=== PATIENT | female | born 1940 | race Caucasian/White ===

== ENCOUNTER 2020-05-13 15:26 | Inpatient (IN) | payer MEDICARE, SELFPAY ==
[2020-05-13] VITALS (13 sets, daily range): BP systolic 116–138; BP diastolic 71–92; PULSE 62–138; RESP 18–29; TEMP 36.3–36.7; O2SAT 91–100; BMI 33.7; BMI 40.4
--- NOTE | ~2020-05-13 | XR_ITS ---
EXAMINATION: XR chest 1V portable DATE: 05/13/2020 16:35 INDICATION: Weakness. TECHNIQUE: A single frontal view of the chest was obtained. COMPARISON: Chest 2 views 08/28/2017, PET CT 10/15/2017 FINDINGS: The chest demonstrates clear lungs without pneumonia, pleural effusion, or pneumothorax. Th e heart size is normal. There is a left chest wall pacer with leads in the right atrium and right sylvie tricle. There is a right internal jugular port with tip in superior vena cava. IMPRESSION: 1. No acute cardiopulmonary disease. Reviewed, dictated and finalized at location A. [place] MEDIA DIRECTOR
--- NOTE | 2020-05-13 15:39 | ECG_ITS ---
Measurements Intervals [place] Rate: 135 P: [place]: 0 QRS: -26 QRSD: 88 T: -14 QT: 298 QTc: 448 Interpretive Statements SUPRAVENTRICULAR TACHYCARDIA DELAYED PRECORDIAL R/S TRANSITION BORDERLINE T WAVE ABNORMALITY- INFERIOR LEADS BASELINE ARTIFACT- I, II, III, AVR, AVL, AVF ABNORMAL ECG Electronically Signed On 05-13-2020 16:15:51 [employer] CELE[employer]ANT by Sina Ulloa D.O.
--- NOTE | 2020-05-13 16:08 | ED.WEAKNESS ---
HPI - Weakness General Chief complaint: Weakness Stated complaint: low blood pressure Time Seen by Provider: 05/13/20 15:28 Source: patient and family Mode of arrival: EMS Limitations: no limitations History of Present Illness HPI Narrative: This patient is a 79 year old female who presents for evaluation of weakness. She reports 2 days ago she develops chills, sweats and malodorous urine. She was trying to go to her doctor today but she noticed that she was lightheaded and weak. She reports her BP at home was 91/50 and her heart rate was 145. She reports history of sick sinus and tachycardia, so she has a pacemaker. She denies chest pain, sob, cough, nausea, vomiting, abdominal pain or back pain. She reports frequent urinary and incontinence today as well. Related Data Home Medications Medication Instructions Recorded Confirmed amlodipine 5 mg PO DAILY 05/13/20 05/13/20 apixaban [Eliquis] 5 mg PO BID 05/13/20 05/13/20 carvedilol 25 mg PO BID 05/13/20 05/13/20 chlorthalidone 25 mg PO DAILY 05/13/20 05/13/20 cholecalciferol (vitamin D3) 50 mcg PO DAILY 05/13/20 05/13/20 fluticasone propionate 2 spray INTRANASAL DAILY PRN 05/13/20 05/13/20 ketorolac 1 drp RIGHTEYE TID 05/13/20 05/13/20 latanoprost 1 drp OPHTHALMIC (EYE) HS 05/13/20 05/13/20 levothyroxine 125 mcg PO DAILY 05/13/20 05/13/20 lovastatin 20 mg PO DAILY 05/13/20 05/13/20 metformin 1,000 mg PO BID 05/13/20 05/13/20 ofloxacin 1 drp RIGHTEYE TID 05/13/20 05/13/20 olmesartan 20 mg PO BID 05/13/20 05/13/20 prednisolone acetate 1 drp RIGHTEYE TID 05/13/20 05/13/20 turmeric 400 mg PO DAILY 05/13/20 05/13/20 vit C-vit W-lqpwxz-lplt-lutein 1 cap PO DAILY 05/13/20 05/13/20 [PreserVision Lutein] Allergies Allergy/AdvReac Type Severity Reaction Status Date / Time exenatide Allergy Intermediate KNEE Verified 05/13/20 21:30 SWELLING enalaprilat Allergy Mild UNSURE Verified 05/13/20 21:30 lisinopril Allergy Mild UNSURE Verified 05/13/20 21:30 streptomycin Allergy Mild ITCHING, Verified 05/13/20 21:30 NUMBNESS IN ARM hydrocodone AdvReac Intermediate NAUSEA Verified 05/13/20 21:30 MEPIVACAINE HCL Allergy Severe RESP Uncoded 05/13/20 21:30 DISTRESS Review of Systems Review of Systems: All systems reviewed & are unremarkable except as noted in HPI and below Constitutional: Constitutional: Reports chills and Reports fatigue Eyes: Eyes: Denies change in vision ENT: Reports dizziness and Denies sore throat Cardiovascular: Cardiovascular: Denies chest pain, Reports rapid heart rate and Denies radiating jaw, neck or arm pain Respiratory: Respiratory: Denies cough, Denies dyspnea and Denies wheezing Gastrointestinal: Gastrointestinal: Denies abdominal pain, Denies nausea and Denies vomiting Genitourinary: Genitourinary: Reports nocturia and Reports urinary incontinence Musculoskeletal: Musculoskeletal: Denies back pain [facility] Past Medical History Medical History (Updated 05/13/20 @ 23:37 by Kristy Berry MD) Cataract CHF (congestive heart failure), NYHA class I Diastolic dysfunction and 1 DM2 (diabetes mellitus, type 2) Frequent UTI Glaucoma Hypothyroidism Obstructive sleep apnea Pacemaker Port-A-Cath in place Sick sinus syndrome Stomach cancer Treated with radiation and chemotherapy Surgical History Surgical History (Updated 05/13/20 @ 23:15 by Sarah Benton NP) Cataract extraction status History of bilateral knee replacement History of carpal tunnel release Right hand Family History Family History (Updated 05/13/20 @ 23:05 by Sarah Benton NP) Father Cerebrovascular accident Mother Cancer Grandparent Carcinoma of colon Social History Social History (Updated 05/13/20 @ 23:10 by Sarah Benton NP) Social History: 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 She quit smoking 17 or 18 years ago. For a brief period time maybe 8 years. No alcohol or illicit drugs. Her daughter She
[2020-05-13 16:27] LABS: Basophils Absolute Auto 0.1 K/mm3 (0.0-0.1); Basophils Percent Auto 0.3 % (0.2-1.2); Eosinophils Percent Auto 0.1 % (0-4.4); Hematocrit 30.9 % (37.0-47.0); Hemoglobin 9.9 g/dL (12.0-15.0); Immature Granulocyte Absolute 0.11 K/mm3 (0.00-0.031); Immature Granulocyte Percent A 0.7 % (0-0.5); Lymphocytes Absolute Auto 1.51 K/mm3 (0.9-3.2); Lymphocytes Percent Auto 9.5 % (18.3-44.2); Mean Corpuscular Hemoglobin 29.1 pg (26-34); Mean Corpuscular Volume 90.9 fl (80-100); Monocytes Absolute Auto 1.4 K/mm3 (0.1-0.6); Monocytes Percent Auto 8.9 % (2.6-8.5); Neutrophils Absolute Auto 12.7 K/mm3 (1.3-6.7); Neutrophils Percent Auto 80.5 % (45.5-73.1); Platelet Count Result 245 k/mm3 (150-375); Red Cell Distribution Width 15.3 % (11.5-14.5); White Blood Count 15.8 K/mm3 (4.5-10.0)
[2020-05-13 16:37] LABS: INR 1.7; Prothrombin Time 20.8 Seconds (11.1-14.7)
[2020-05-13 16:38] LABS: Partial Thromboplastin Time 41.9 SECONDS (22.3-36.8)
[2020-05-13 16:39] LABS: Lactic Acid Reflex 1.6 mmol/L (0.7-2.1)
[2020-05-13 16:49] LABS: Alanine Aminotransferase 26 U/L (4-35); Albumin Level 3.6 g/dL (3.5-5.1); Alkaline Phosphatase 81 U/L (38-126); Anion Gap 7 mmol/L (8-16); Aspartate Amino Transferase 34 U/L (14-36); Bilirubin,Total 0.6 mg/dL (0.2-1.3); Blood Urea Nitrogen 25 mg/dL (7-17); Calcium 8.2 mg/dL (8.4-10.2); Carbon Dioxide 26 mmol/L (22-30); Chloride 95 mmol/L (98-107); Estimated Glomerular Filt Rate 36; Glucose 203 mg/dL (65-105); Potassium 4.5 mmol/L (3.4-5.0); Sodium 128 mmol/L (137-145)
[2020-05-13 16:52] LABS: Troponin I 0.028 ng/mL (0.000-0.034)
[2020-05-13] MEDS: dilTIAZem HCl INJ 25 MG/5 ML VIAL 10 MG IV PUSH (17:06)
[2020-05-13 17:10] LABS: Add Urine Microscopic? YES; Appearance Urine Cloudy (Clear); Bacteria Urine 2+ /hpf; Bilirubin Urine Negative (Negative); Blood Urine 2+ (Negative); Color Urine Amber (Yellow); Glucose Urine UA Negative (Negative); Hyaline Casts Urine 30-49 /lpf; Ketones Urine Negative (Negative); Leukocyte Esterase Ur 2+ LEU/UL (Negative); Mucus Urine Moderate /lpf; Nitrate Urine Negative (Negative); Protein Urine 2+ mg/dL (Negative); RBC Urine 21-50 /hpf (0-2); Specific Grav Ur 1.019 (1.001-1.035); Squamous Epithelial Cell Urine Few /hpf (Few); WBC Clumps Urine Present /HPF; WBC Urine >75 /hpf
[2020-05-13] MEDS: METOPROLOL TARTRATE INJ 5 MG/5 ML VIAL IV PUSH (18:12)
--- NOTE | 2020-05-13 18:47 | PC.NURSE ---
Per Dr. Berry do not administer medication until she speaks with cardiology
[2020-05-13] MEDS: AMIODARONE 360 MG/D5W 200 ML 360 MG/200 ML BAG 33.33 MG IV CONT (19:25)
[2020-05-13] MEDS: SODIUM CHLORIDE 0.9% IV 2,700 ML/1,000 ML BAG 999 ML IV CONT ×3 (19:25→22:09)
--- NOTE | 2020-05-13 20:20 | PM.CNCAR ---
Assessment and Plan Assessment and plan (1) UTI (urinary tract infection): Code(s): N39.0 - Urinary tract infection, site not specified Status: Acute Assessment and Plan: On antibiotics. Will followed by hospitalist. (2) PSVT (paroxysmal supraventricular tachycardia): Code(s): I47.1 - Supraventricular tachycardia Status: Acute Assessment and Plan: Probably triggered by UTI. Continue Amiodarone drip loading for 24 hours. Give Metoprolol Tartate 25 mg PO every 6 hours with parameters for rate control. (3) Hypertension: Code(s): I10 - Essential (primary) hypertension Status: Acute Assessment and Plan: Stable. (4) Diastolic dysfunction: Code(s): I51.89 - Other ill-defined heart diseases Status: Acute (5) Dyslipidemia: Code(s): E78.5 - Hyperlipidemia, unspecified Status: Acute History of Present Illness History of Present Illness Consult date/time: 05/13/20 20:20 Reason for consult: PSVT. Saw patient in ER room with her daughter at bedside. 79 yr old woman who is my regular cardiology patient who I saw last in my office on 08/30/17 who presents to ER due to weakness. She has a history of PSVT from 2016, DM, hypertension, dyslipidemia, Medtronic pacemaker placed in September 2019 at [facility] and being followed by pca there, had stomach/esophageal tumor treated with radiation and chemotherapy at [facility]. Reports that for last days she noticed chills, urinary urgency, and weakness. She came to ER and it was noted on telemetry and EKG that she was going in and out of SVT. She also has UTI. She received antibiotics and placed on Amiodarone drip. Denies chest pain, sob, orthopnea, PND, edema. Cardiovascular studies: 09/12/17 Echo: EF 60-65%, mild LVH, grade I diastolic dysfunction (E/e' 27), mild LAE, mild MR. 09/12/17 Lexiscan myoview: Negative for ischemia. Reason For Visit: sepsis UTI, paroxsymal svt, acute renal failure Review of Systems Constitutional: Constitutional: Reports as per HPI, Reports chills, Reports fatigue and Denies fever(s) Cardiovascular: Cardiovascular: Reports as per HPI, Denies chest pain, Denies leg edema, Denies lightheadedness and Denies dyspnea Respiratory: Respiratory: Reports as per HPI and Denies dyspnea Gastrointestinal: Gastrointestinal: Reports as per HPI and Denies abdominal pain Genitourinary: Genitourinary: Reports as per HPI and Reports urinary urgency Musculoskeletal: Musculoskeletal: Reports as per HPI Neurologic: Reports as per HPI, Denies dizziness and Denies syncope [facility] Past Medical History Medical History (Updated 05/13/20 @ 20:27 by Sina Ulloa DO) Cataract Frequent UTI Pacemaker Port-A-Cath in place Sick sinus syndrome Family History Family History (Updated 12/24/13 @ 07:13 by DOCTOR UNKNOWN) Father Cerebrovascular accident Mother Carcinoma of colon Social History Social History Smoking status: Former smoker Meds Home Medications and Allergies Home Medications Medication Instructions Recorded Confirmed Type amlodipine 05/13/20 History carvedilol 05/13/20 History cholecalciferol (vitamin D3) 05/13/20 History fluticasone propionate 2 spray INTRANASAL DAILY 05/13/20 05/13/20 History latanoprost drp 05/13/20 History levothyroxine 137 mcg PO DAILY 05/13/20 05/13/20 History lovastatin 20 mg PO DAILY 05/13/20 05/13/20 History metformin mg 05/13/20 History olmesartan 20 mg PO DAILY 05/13/20 05/13/20 History turmeric mg PO 05/13/20 05/13/20 History Allergies Allergy/AdvReac Type Severity Reaction Status Date / Time exenatide Allergy Intermediate KNEE Verified 05/13/20 15:26 SWELLING enalaprilat Allergy Mild UNSURE Verified 05/13/20 15:26 lisinopril Allergy Mild UNSURE Verified 05/13/20 15:26 streptomycin Allergy Mild ITCHING, Verified 05/13/20 15:26 NUMBNESS IN ARM hydrocodone AdvReac Intermediate NAUSEA Verified 05/13/20 15:26 MEPIVACAINE H
--- NOTE | 2020-05-13 20:35 | ADMGEN ---
This patient, Faye Marquez, was admitted to IMU Room 203-01. Patient/family oriented to hospital policies and general routines including ID bracelet, bed and alarms, visiting hours, pain management, procedures, bathroom and other care routines, personal items, smoking policy, room service/diet, and visiting hours. Information on how to activate the Rapid Response Team has been discussed. Patient/Family are encouraged to report perceived risks to care and to ask questions if they do not understand what they are told or what they should do.
[2020-05-13 21:18] LABS: Magnesium 1.5 mg/dL (1.6-2.3)
--- NOTE | 2020-05-13 22:53 | PM.IMHP ---
H&P: HPI History of Present Illness Date/Time: 05/13/20 22:53 Chief Complaint: Low blood pressure and fast heart rate sepsis Narrative: Faye Marquez is a 79 year old femaleHer doctor's office today due to generalized weakness. For the past 2 days she has had some chills diaphoretic and some foul-smelling urine. The patient stated she was lightheaded and weak. Her blood pressure at home was 91/50 and her heart rate was 145. She does have a history of sick sinus syndrome and has a pacemaker. She has urinary frequency and incontinence today as well. Patient has a past history of having SVT. The patient stated that her blood sugars are even a little bit higher today they are in the 200s. The patient was brought here by ambulance from her doctor's office due to her low blood pressure and it was reported that the patient has sepsis. Heart rate was 138 and a did come down is 72 and then 62 but then went right back up to the 120s. Side but a IV boluses were given and she recovered well. Dr. stevens her thoroughbred horse farm manager came to see her and suggested amiodarone drip and Lopressor p.o. the patient had been on Coreg at home. The patient was started on ceftriaxone for her urinary tract infection. The patient had a sodium of 128. Glucose 203. Magnesium 1.5. C reactive protein 19. Patient was given IV Tylenol in the emergency room. The patient is being admitted to inpatient services on the date of service of 05/13/2020. Review of Systems Review of Systems: All systems reviewed & are unremarkable except as noted in HPI and below Constitutional: Constitutional: Reports as per HPI and Reports no additional constitutional complaints Eyes: Eyes: Reports as per HPI and Reports no additional eye complaints ENT: Reports system reviewed and no additional complaints, except as documented and Reports Normal hearing present Cardiovascular: Cardiovascular: Reports no additional cardiovascular complaints Respiratory: Respiratory: Reports no additional respiratory complaints and Reports no additional respiratory complaints Gastrointestinal: Gastrointestinal: Reports as per HPI and Reports no additional gastrointestinal complaints Musculoskeletal: Musculoskeletal: Reports no additional musculoskeletal complaints Integumentary/Breasts: Skin/Breast: Reports system reviewed and no additional complaints, except as docu and Reports as per HPI Neurologic: Reports system reviewed and no additional complaints, except as documented, Reports as per HPI and Reports Normal hearing present Psychiatric: Psychiatric: Reports no additional psychiatric complaints and Reports as per HPI Endocrine: Endocrine: Reports no additional endocrine complaints Hematologic/Lymphatic: Hematologic/Lymphatic: Reports no additional hematologic/lymphatic complaints Allergic/Immunologic: Allergic/Immunologic: Reports no additional allergic/immunologic complaints [facility] Past Medical History Medical History (Updated 05/13/20 @ 23:15 by Sarah Benton NP) Cataract CHF (congestive heart failure), NYHA class I Diastolic dysfunction and 1 DM2 (diabetes mellitus, type 2) Frequent UTI Glaucoma Hypothyroidism Obstructive sleep apnea Pacemaker Port-A-Cath in place Sick sinus syndrome Stomach cancer Treated with radiation and chemotherapy Surgical History Surgical History (Updated 05/13/20 @ 23:15 by Sarah Benton NP) Cataract extraction status History of bilateral knee replacement History of carpal tunnel release Right hand Family History Family History (Updated 05/13/20 @ 23:05 by Sarah Benton NP) Father Cerebrovascular accident Mother Cancer Grandparent Carcinoma of colon Social History Social History (Updated 05/13/20 @ 23:10 by Sarah Benton NP) Social History: 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 She quit smoking 17 or 18 years ago. For a brief period time maybe 8 years. No alcohol or illicit drugs. Her daughter Teri is a durable
[2020-05-13] MEDS: SODIUM CHLORIDE 0.9% IV 1,000 ML 125 ML IV CONT (23:19)
[2020-05-13] MEDS: METOPROLOL TARTRATE 25 MG TABLET PO (23:58)
[2020-05-13] MEDS: APIXABAN 5 MG TABLET PO (23:58)
[2020-05-13] MEDS: MAGNESIUM SULF 2 GM/WATER 50ML 2 GM/50 ML BAG IVPB (23:59)
[2020-05-14] VITALS (29 sets, daily range): BP systolic 114–147; BP diastolic 67–93; PULSE 69–142; RESP 18–22; TEMP 36.2–37.1; O2SAT 89–98
[2020-05-14] MEDS: AMIODARONE 360 MG/D5W 200 ML 360 MG/200 ML BAG 16.67 MG IV CONT ×2 (00:53→11:41)
--- NOTE | 2020-05-14 02:06 | ECG_ITS ---
Measurements Intervals [place] Rate: 78 P: 87 MD: 302 QRS: -33 QRSD: 89 T: 0 QT: 359 QTc: 409 Interpretive Statements SINUS RHYTHM WITH FIRST DEGREE AV BLOCK LEFT AXIS DEVIATION NONSPECIFIC ST & T-WAVE ABNORMALITY- INF/HIGH LAT LEADS ABNORMAL ECG Electronically Signed On 05-14-2020 8:05:38 TIRE FIXER by Sina Ulloa D.O.
[2020-05-14 05:11] LABS: Sodium Urine Random 96 meq/L
[2020-05-14] MEDS: LEVOTHYROXINE SODIUM 125 MCG TABLET PO (06:26)
[2020-05-14] MEDS: METOPROLOL TARTRATE 25 MG TABLET PO ×2 (06:26→11:41)
[2020-05-14 07:31] LABS: Glucose Point of Care 149 (65-105)
[2020-05-14 08:07] LABS: Basophils Percent Auto 0.2 % (0.2-1.2); Eosinophils Percent Auto 0.2 % (0-4.4); Hematocrit 31.1 % (37.0-47.0); Hemoglobin 10.2 g/dL (12.0-15.0); Immature Granulocyte Absolute 0.06 K/mm3 (0.00-0.031); Immature Granulocyte Percent A 0.5 % (0-0.5); Lymphocytes Absolute Auto 1.19 K/mm3 (0.9-3.2); Lymphocytes Percent Auto 9.5 % (18.3-44.2); Mean Corpuscular HGB Conc 32.8 g/dl (32-36); Mean Corpuscular Hemoglobin 28.7 pg (26-34); Mean Corpuscular Volume 87.4 fl (80-100); Mean Platelet Volume 9.4 fl (7.4-10.4); Monocytes Percent Auto 7.8 % (2.6-8.5); Neutrophils Absolute Auto 10.2 K/mm3 (1.3-6.7); Neutrophils Percent Auto 81.8 % (45.5-73.1); Platelet Count Result 278 k/mm3 (150-375); Red Blood Count 3.56 M/mm3 (4.2-5.4); Red Cell Distribution Width 15.1 % (11.5-14.5); White Blood Count 12.5 K/mm3 (4.5-10.0)
[2020-05-14 08:22] LABS: Alanine Aminotransferase 65 U/L (4-35); Albumin Level 3.3 g/dL (3.5-5.1); Alkaline Phosphatase 93 U/L (38-126); Anion Gap 5 mmol/L (8-16); Aspartate Amino Transferase 79 U/L (14-36); Bilirubin,Total 0.4 mg/dL (0.2-1.3); Blood Urea Nitrogen 17 mg/dL (7-17); Calcium 7.9 mg/dL (8.4-10.2); Carbon Dioxide 23 mmol/L (22-30); Chloride 104 mmol/L (98-107); Estimated CRCL calculation 41 ml/min; Estimated Glomerular Filt Rate 53; Glucose 145 mg/dL (65-105); Lactic Acid Reflex 1.3 mmol/L (0.7-2.1); Potassium 3.6 mmol/L (3.4-5.0); Sodium 132 mmol/L (137-145)
--- NOTE | 2020-05-14 08:56 | PM.PNCARD ---
Progress Note: A&P Assessment and Plan (1) UTI (urinary tract infection): Code(s): N39.0 - Urinary tract infection, site not specified Status: Acute Assessment and Plan: On antibiotics. Followed by hospitalist. (2) PSVT (paroxysmal supraventricular tachycardia): Code(s): I47.1 - Supraventricular tachycardia Status: Acute Assessment and Plan: In and out of SVT. Probably triggered by UTI. Urine and blood cultures pending. Continue Amiodarone drip loading for 24 hours, then change to Amiodarone 200 mg PO BID. Give Metoprolol Tartate 25 mg PO every 6 hours with parameters for rate control. (3) Hypertension: Code(s): I10 - Essential (primary) hypertension Status: Acute Assessment and Plan: Stable. (4) Diastolic dysfunction: Code(s): I51.89 - Other ill-defined heart diseases Status: Acute Assessment and Plan: Stable. (5) Dyslipidemia: Code(s): E78.5 - Hyperlipidemia, unspecified Status: Acute (6) PAF (paroxysmal atrial fibrillation): Code(s): I48.0 - Paroxysmal atrial fibrillation Status: Acute Assessment and Plan: Patient has had PAF, and is on Eliquis 5 mg BID for the past year, per patient. Followed by her regular catering administrative assistant at [facility]. (7) Pacemaker: Code(s): Z95.0 - Presence of cardiac pacemaker Status: Acute Assessment and Plan: Medtronic device, followed by her regular catering administrative assistant at [facility]. Subjective Date/time seen: 05/14/20 08:56 Denies chest pain or sob. Exam Const: General: cooperative, healthy appearing and comfortable Nutritional Appearance: obese Cardio: Jugular venous distension: no JVD Rate: tachycardic Rhythm: abnormal rhythm Heart sounds: no murmurs Peripheral pulses: dorsalis pedis present GI: GI Palp: No abdominal tenderness and Yes Soft to palpation Neuro: General: oriented to person, oriented to place and oriented to time Extrem: Right lower extremity: no edema Left lower extremity: no edema Objective Data Vital Signs Vital Signs: Vital Signs - 24 hr 05/13/20 15:20 05/13/20 17:10 05/13/20 17:35 Temperature 97.4 F L Pulse Rate 138 H 62 68 Respiratory Rate 18 27 H 25 H Blood Pressure 129/84 128/72 Pulse Oximetry 97 100 95 05/13/20 18:12 05/13/20 18:24 05/13/20 19:25 Temperature Pulse Rate 72 126 H 128 H Respiratory Rate 29 H Blood Pressure 138/75 127/84 Pulse Oximetry 99 05/13/20 20:30 05/13/20 20:35 05/13/20 20:40 Temperature 98.1 F Pulse Rate 121 H 131 H 128 H Respiratory Rate 24 H 20 20 Blood Pressure 128/92 H 116/71 Pulse Oximetry 100 99 99 05/13/20 22:00 05/13/20 22:25 05/13/20 22:45 Temperature Pulse Rate 133 H 128 H 128 H Respiratory Rate Blood Pressure Pulse Oximetry 91 91 05/13/20 23:58 05/14/20 00:00 05/14/20 00:53 Temperature 98.8 F Pulse Rate 130 H 129 H 127 H Respiratory Rate 22 H Blood Pressure 143/80 H 143/80 H Pulse Oximetry 89 L 05/14/20 01:05 05/14/20 02:00 05/14/20 04:00 Temperature 98.8 F Pulse Rate 69 77 84 Respiratory Rate 18 Blood Pressure 141/70 H Pulse Oximetry 98 05/14/20 06:00 05/14/20 06:26 05/14/20 08:10 Temperature 98.3 F Pulse Rate 76 75 134 H Respiratory Rate 20 Blood Pressure 121/67 Pulse Oximetry 92 Intake/Output Intake/Output: Intake & Output 05/11/20 05/12/20 05/13/20 05/14/20 23:59 23:59 23:59 23:59 Intake Total 2750 1910 Output Total 860 1200 Balance 1890 710 Meds/Results Medications: Active Medications Generic Name Dose Route Start Last Admin Trade Name Freq PRN Reason Stop Dose Admin Amiodarone HCl 200 mg 05/14/20 18:00 Amiodarone Hcl 200 Mg Tablet PO BID AMANDA Apixaban 5 mg 05/13/20 22:55 05/13/20 23:58 Apixaban 5 Mg Tablet PO 5 mg Q12HR AMANDA Administration Dextrose 12.5 gm 05/13/20 22:49 Dextrose 50% 25 Gm/50 Ml Syringe IV PUSH PRN PRN Hypoglycemia
[2020-05-14] MEDS: SODIUM CHLORIDE 0.9% IV 1,000 ML 125 ML IV CONT ×2 (09:01→17:23)
[2020-05-14] MEDS: OFLOXACIN 0.3% OPHTH SOLN 5 ML BTL 1 DROP RIGHT EYE ×3 (09:03→17:25)
[2020-05-14] MEDS: OLMESARTAN MEDOXOMIL 20 MG TABLET PO ×2 (09:05→17:25)
[2020-05-14] MEDS: KETOROLAC 0.5% OP SOLN 5 ML BOTTLE 1 DROP RIGHT EYE ×3 (09:05→17:26)
[2020-05-14] MEDS: OPTI-GEN TAB 1 TABLET PO (09:05)
[2020-05-14] MEDS: APIXABAN 5 MG TABLET PO ×2 (09:06→21:00)
[2020-05-14] MEDS: CHOLECALCIFEROL 1,000 UNITS TABLET 2000 UNITS PO (09:06)
[2020-05-14 10:21] LABS: Hemoglobin A1C 6.3 % (<5.7)
[2020-05-14 11:29] LABS: Glucose Point of Care 222 (65-105)
[2020-05-14] MEDS: INSULIN ASPART (*BKC) 100 UNITS/ML SUB-Q (11:41)
--- NOTE | 2020-05-14 14:08 | PM.IMPN ---
Progress Note: A&P Assessment and Plan (1) PSVT (paroxysmal supraventricular tachycardia): Code(s): I47.1 - Supraventricular tachycardia Status: Acute Assessment and Plan: Dr. Ulloa has seen the patient is on amiodarone drip and metoprolol. (2) Sepsis: Code(s): A41.9 - Sepsis, unspecified organism Status: Acute Assessment and Plan: Patient had a low blood pressure and elevated heart rate. Pt is on iv fluids. continue to monitor Bp and HR. (3) UTI (urinary tract infection): Code(s): N39.0 - Urinary tract infection, site not specified Status: Acute Assessment and Plan: Pt is on iv Rocephin. Blood and urine cultures are pending. (4) Hypertension: Code(s): I10 - Essential (primary) hypertension Status: Acute Assessment and Plan: Patient was started on metoprolol she is currently on the amiodarone drip. (5) Diastolic dysfunction: Code(s): I51.89 - Other ill-defined heart diseases Status: Acute Assessment and Plan: The patient is being seen by Dr. Ulloa. (6) Hypothyroidism: Code(s): E03.9 - Hypothyroidism, unspecified Status: Chronic Assessment and Plan: Check thyroid level continue with levothyroxine. (7) DM2 (diabetes mellitus, type 2): Code(s): E11.9 - Type 2 diabetes mellitus without complications Status: Chronic (8) Glaucoma: Code(s): H40.9 - Unspecified glaucoma Status: Chronic Assessment and Plan: Continue on eyedrops. (9) Acute kidney injury: Code(s): N17.9 - Acute kidney failure, unspecified Status: Acute Assessment and Plan: Hold chlorthalidone and hold metformin. (10) Obstructive sleep apnea: Code(s): G47.33 - Obstructive sleep apnea (adult) (pediatric) Status: Chronic Assessment and Plan: The patient has her her CPAP machine with her. (11) Low magnesium level: Code(s): R79.0 - Abnormal level of blood mineral Status: Acute Assessment and Plan: Mg is 2 (12) Low sodium levels: Code(s): E87.1 - Hypo-osmolality and hyponatremia Status: Acute Assessment and Plan: She is on a diuretic so that is on hold at this time. sodium is 132 Subjective Date/time seen: 05/14/20 14:08 Interval history: Alma is a 79 year old female Her doctor's office today due to generalized weakness. Pt admitted with UTI and SVT. Known history of chf diastolic dysfunction, seen by cardiology pt is still in fast svt on telemetry, no chest pain or palpitations. Review of Systems Review of Systems: All systems reviewed & are unremarkable except as noted in HPI and below Exam Const: General: cooperative and Physically active Nutritional Appearance: average body habitus and well nourished Orientation/consciousness: oriented to person, oriented to place, oriented to time and patient oriented x3 Limitations: no limitations Chest: Chest palpation & inspection: normal inspection of the chest Resp: Effort & Inspection: normal respiratory effort Auscultation: clear to auscultation bilaterally Percussion: percussion normal Cardio: Palpation: normal PMI Rate: regular rate Rhythm: regular rhythm Heart sounds: S1 normal heart sound present and S2 normal heart sound present Peripheral pulses: Peripheral pulses 2+ throughout GI: Inspection: normal to inspection Auscultation: normal bowel sounds Skin: General skin exam: normal color Lesions: no lesions Rashes: no rashes Trauma: no lacerations or abrasions Wounds: no wounds Hair: normal Nails: normal Objective Data Vital Signs Vital Signs: Vital Signs - 24 hr 05/13/20 15:20 05/13/20 17:10 05/13/20 17:35 Temperature 36.3 C L Pulse Rate 138 H 62 68 Respiratory Rate 18 27 H 25 H Blood Pressure 129/84 128/72 Pulse Oximetry 97 100 95 05/13/20 18:12 05/13/20 18:24 05/13/20 19:25 Temperature Pulse Rate 72 126 H 128 H Respiratory Rate
--- NOTE | 2020-05-14 15:05 | ECG_ITS ---
Measurements Intervals [place] Rate: 74 P: 79 CO: 273 QRS: -14 QRSD: 94 T: 0 QT: 355 QTc: 394 Interpretive Statements SINUS RHYTHM WITH FIRST DEGREE AV BLOCK NONSPECIFIC ST & T-WAVE ABNORMALITY- HIGH LATERAL LEADS BASELINE WANDER- V4, V6 ABNORMAL ECG Electronically Signed On 05-15-2020 7:35:00 AUTO BUMPER MECHANIC by Sina Ulloa D.O.
[2020-05-14 16:29] LABS: Glucose Point of Care 175 (65-105)
[2020-05-14] MEDS: AMIODARONE HCL 200 MG TABLET PO (17:25)
[2020-05-14] MEDS: METOPROLOL TARTRATE 50 MG TAB PO (17:25)
[2020-05-14 20:40] LABS: Glucose Point of Care 176 (65-105)
[2020-05-14] MEDS: LOVASTATIN 20 MG TABLET PO (21:00)
[2020-05-14] MEDS: LATANOPROST 0.005% OP SOLN 2.5 ML BTL 1 DROP EACH EYE (21:00)
--- NOTE | 2020-05-14 21:54 | ECG_ITS ---
Measurements Intervals [place] Rate: 139 P: 185 CO: 147 QRS: -10 QRSD: 84 T: 0 QT: 152 QTc: 232 Interpretive Statements SUPRAVENTRICULAR TACHYCARDIA- PROBABLY AVNRT BORDERLINE R WAVE PROGRESSION, ANTERIOR LEADS BORDERLINE ST-T WAVE ABNORMALITY- INF/HIGH LAT LEADS BASELINE ARTIFACT- I, II, III, AVR, AVL ABNORMAL ECG Electronically Signed On 05-15-2020 7:15:01 BARREL DRAINER by Sina Ulloa D.O.
[2020-05-14] MEDS: CALCIUM CARBONATE (TUMS) 500 MG (200 MG ELEMENTAL) PO (22:05)
[2020-05-14] MEDS: METOPROLOL TARTRATE INJ 5 MG/5 ML VIAL IV PUSH (22:05)
--- NOTE | 2020-05-14 23:12 | PC.NURSE ---
Addendum entered by Kaela Fleming RN 05/15/20 04:16: Called Dr Ulloa back at 0018 since pt's heart rate has yet again accelerated up to 140. I asked whether to administer reduced dose of Metoprolol that was changed earlier when pt had 1st degree block or to increase back up to original order of 50mg q6h. Order to administer 50mg q6h. Informed doctor that pt is asymptomatic in 140's and asked if we should do anything else at this time. No further orders. Original Note: Dr Ulloa entered order for Adenosine for persistent SVT in 140's, RN called at [address] Ulloa confirmed order and ordered repeat 12mg Adenosine if SVT was not responsive to initial 6mg dose. Physician is needed at bedside for adenosine. Called Dr Mcclain who was unsure that it was necessary to administer. Dr Mcclain ordered 5 mg iv metoprolol and an ekg when her HR slowed down enough to better determine rhythm. Pt converted 30 min after administration. EKG obtained and showed SR with a 1st degree block. Called Dr Ulloa to update that pt was in SR, but had the block and po metoprolol due at midnight. Order from Dr Ulloa to reduce Metoprolol to 25mg q6h from 50mg q6 and to discontinue Adenosine. Pt's HR then flipped back out of SR at 2301 with a regular HR sustaining at 140. Dr Mcclain notified.
[2020-05-14 23:58] LABS: Anion Gap 5 mmol/L (8-16); Blood Urea Nitrogen 16 mg/dL (7-17); Calcium 7.8 mg/dL (8.4-10.2); Carbon Dioxide 22 mmol/L (22-30); Chloride 105 mmol/L (98-107); Estimated CRCL calculation 45 ml/min; Estimated Glomerular Filt Rate 60; Glucose 157 mg/dL (65-105); Magnesium 1.8 mg/dL (1.6-2.3); Potassium 3.5 mmol/L (3.4-5.0); Sodium 132 mmol/L (137-145)
[2020-05-15] VITALS (14 sets, daily range): BP systolic 124–132; BP diastolic 75–91; PULSE 60–148; RESP 14–18; TEMP 36.2–36.8; O2SAT 93–95
[2020-05-15] MEDS: METOPROLOL TARTRATE 50 MG TAB PO ×3 (00:24→11:32)
[2020-05-15] MEDS: LEVOTHYROXINE SODIUM 125 MCG TABLET PO (06:15)
[2020-05-15 07:09] LABS: Hemoglobin 9.3 g/dL (12.0-15.0); Mean Corpuscular HGB Conc 33.2 g/dl (32-36); Mean Corpuscular Hemoglobin 29.2 pg (26-34); Mean Corpuscular Volume 87.8 fl (80-100); Mean Platelet Volume 9.6 fl (7.4-10.4); Platelet Count Result 263 k/mm3 (150-375); Red Blood Count 3.19 M/mm3 (4.2-5.4); Red Cell Distribution Width 15.3 % (11.5-14.5); White Blood Count 9.2 K/mm3 (4.5-10.0)
[2020-05-15 07:21] LABS: Anion Gap 4 mmol/L (8-16); Blood Urea Nitrogen 14 mg/dL (7-17); Carbon Dioxide 24 mmol/L (22-30); Chloride 105 mmol/L (98-107); Estimated CRCL calculation 46 ml/min; Estimated Glomerular Filt Rate 60; Glucose 157 mg/dL (65-105); Potassium 3.3 mmol/L (3.4-5.0); Sodium 133 mmol/L (137-145)
[2020-05-15 08:01] LABS: Glucose Point of Care 164 (65-105)
[2020-05-15] MEDS: OPTI-GEN TAB 1 TABLET PO (08:13)
[2020-05-15] MEDS: OFLOXACIN 0.3% OPHTH SOLN 5 ML BTL 1 DROP RIGHT EYE ×2 (08:13→11:31)
[2020-05-15] MEDS: KETOROLAC 0.5% OP SOLN 5 ML BOTTLE 1 DROP RIGHT EYE ×2 (08:13→11:31)
[2020-05-15] MEDS: OLMESARTAN MEDOXOMIL 20 MG TABLET PO (08:13)
[2020-05-15] MEDS: CHOLECALCIFEROL 1,000 UNITS TABLET 2000 UNITS PO (08:14)
[2020-05-15] MEDS: APIXABAN 5 MG TABLET PO (08:14)
[2020-05-15] MEDS: AMIODARONE HCL 200 MG TABLET PO (08:14)
--- NOTE | 2020-05-15 08:40 | PM.PNCARD ---
Progress Note: A&P Assessment and Plan (1) UTI (urinary tract infection): Code(s): N39.0 - Urinary tract infection, site not specified Status: Acute Assessment and Plan: On antibiotics. Followed by hospitalist. Urine cultured E. coli and blood cultures pending but was positive for gram negative bacilli. (2) PSVT (paroxysmal supraventricular tachycardia): Code(s): I47.1 - Supraventricular tachycardia Status: Acute Assessment and Plan: In and out of SVT. Probably triggered by UTI/sepsis. Was on Amiodarone drip loading for 24 hours, then changed to Amiodarone 200 mg PO BID. She is going in and out of SVT frequently. Attepmt rate control with Metoprolol Tartate 50 mg PO every 6 hours and Cardizem 30 mg PO every 6 hours with parameters. 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 Discussed with patient about transfer and she is agreeable to be transferred to [facility] where her regular rose grader is at. Will call to get an accepting physician. (3) Hypertension: Code(s): I10 - Essential (primary) hypertension Status: Acute Assessment and Plan: Stable. (4) Diastolic dysfunction: Code(s): I51.89 - Other ill-defined heart diseases Status: Acute Assessment and Plan: Stable. (5) Dyslipidemia: Code(s): E78.5 - Hyperlipidemia, unspecified Status: Acute (6) PAF (paroxysmal atrial fibrillation): Code(s): I48.0 - Paroxysmal atrial fibrillation Status: Acute Assessment and Plan: Patient has had PAF, and is on Eliquis 5 mg BID for the past year, per patient. Followed by her regular rose grader at [facility]. (7) Pacemaker: Code(s): Z95.0 - Presence of cardiac pacemaker Status: Acute Assessment and Plan: [employer] device, followed by her regular rose grader, Dr. Chin Knowles, at [facility]. Subjective Date/time seen: 05/15/20 08:40 Denies chest pain or sob. Exam Const: General: cooperative, healthy appearing and comfortable Nutritional Appearance: obese Cardio: Jugular venous distension: no JVD Rate: tachycardic Rhythm: abnormal rhythm Heart sounds: no murmurs Peripheral pulses: dorsalis pedis present GI: GI Palp: No abdominal tenderness and Yes Soft to palpation Neuro: General: oriented to person, oriented to place and oriented to time Extrem: Right lower extremity: no edema Left lower extremity: no edema Objective Data Vital Signs Vital Signs: Vital Signs - 24 hr 05/14/20 09:05 05/14/20 09:10 05/14/20 10:00 Temperature Pulse Rate 133 H 133 H Respiratory Rate Blood Pressure Pulse Oximetry 90 92 05/14/20 11:41 05/14/20 11:42 05/14/20 12:00 Temperature 97.2 F L Pulse Rate 137 H 136 H 134 H Respiratory Rate 20 Blood Pressure 114/73 Pulse Oximetry 96 05/14/20 12:29 05/14/20 14:00 05/14/20 16:00 Temperature Pulse Rate 134 H 142 H Respiratory Rate Blood Pressure Pulse Oximetry 96 05/14/20 16:12 05/14/20 17:25 05/14/20 17:30 Temperature 98.5 F Pulse Rate 142 H 142 H Respiratory Rate 20 Blood Pressure 119/81 Pulse Oximetry 95 93 05/14/20 18:00 05/14/20 19:41 05/14/20 20:00 Temperature 98.1 F Pulse Rate 138 H 140 H 140 H Respiratory Rate 22 H Blood Pressure 139/91 H Pulse Oximetry 95 05/14/20 21:30 05/14/20 22:00 05/14/20 22:05 Temperature Pulse Rate 141 H 141 H Respiratory Rate Blood Pressure 131/86 Pulse Oximetry 05/14/20 22:50 05/14/20 23:42 05/15/20 00:00 Temperature 97.9 F Pulse Rate 75 142 H 75 Respiratory Rate 20 Blood Pressure 147/77 H 144/93 H Pulse Oximetry 96 05/15/20 00:24 05/15/20 02:00 05/15/20 03:56 Temperature 97.6 F Pulse Rate 142 H 138 H 140 H Respiratory Rate 18 Blood Pressure 124/75 Pulse Oximetry 95 05/15/20 04:00 05/15/20 06:00 05/15/20 06:15 Temperature Pulse Rate 141 H 140 H 138 H Respir
[2020-05-15 11:09] LABS: Glucose Point of Care 186 (65-105)
[2020-05-15] MEDS: dilTIAZem HCL 30 MG TABLET PO (11:31)
--- NOTE | 2020-05-15 12:28 | PM.TDS ---
Transfer Discharge Sum: Prov Provider Date of admission: 05/13/20 18:45 Primary care physician: Levi Chery, Admitting clinician: Lizbet Trejo MD Consults: 05/13/20 18:47 Consult to Physician Routine Comment: Consulting Provider: Sina Ulloa Reason for consultation: paroxsymal atrial fibrillation Has provider been notified: Yes DS: Admitting Diagnosis Admitting Diagnosis Admitting Diagnosis: Chief Complaint: Low blood pressure and fast heart rate sepsis DS: Discharge Diagnosis Discharge Diagnosis (1) PSVT (paroxysmal supraventricular tachycardia): Code(s): I47.1 - Supraventricular tachycardia Status: Acute Assessment and Plan: Dr. Ulloa has seen the patient is on amiodarone drip and metoprolol. (2) Sepsis: Code(s): A41.9 - Sepsis, unspecified organism Status: Acute Assessment and Plan: Patient had a low blood pressure and elevated heart rate. Pt is on iv fluids. continue to monitor Bp and HR. (3) UTI (urinary tract infection): Code(s): N39.0 - Urinary tract infection, site not specified Status: Acute Assessment and Plan: Pt is on iv Rocephin. Blood and urine cultures are pending. (4) Hypertension: Code(s): I10 - Essential (primary) hypertension Status: Acute Assessment and Plan: Patient was started on metoprolol she is currently on the amiodarone drip. (5) Diastolic dysfunction: Code(s): I51.89 - Other ill-defined heart diseases Status: Acute Assessment and Plan: The patient is being seen by Dr. Ulloa. (6) Hypothyroidism: Code(s): E03.9 - Hypothyroidism, unspecified Status: Chronic Assessment and Plan: Check thyroid level continue with levothyroxine. (7) DM2 (diabetes mellitus, type 2): Code(s): E11.9 - Type 2 diabetes mellitus without complications Status: Chronic (8) Glaucoma: Code(s): H40.9 - Unspecified glaucoma Status: Chronic Assessment and Plan: Continue on eyedrops. (9) Acute kidney injury: Code(s): N17.9 - Acute kidney failure, unspecified Status: Acute Assessment and Plan: Hold chlorthalidone and hold metformin. (10) Obstructive sleep apnea: Code(s): G47.33 - Obstructive sleep apnea (adult) (pediatric) Status: Chronic Assessment and Plan: The patient has her her CPAP machine with her. (11) Low magnesium level: Code(s): R79.0 - Abnormal level of blood mineral Status: Acute Assessment and Plan: Mg is 2 (12) Low sodium levels: Code(s): E87.1 - Hypo-osmolality and hyponatremia Status: Acute Assessment and Plan: She is on a diuretic so that is on hold at this time. sodium is 132 Transfer Discharge Sum: Med Medications Active and Home Medications: Home Medications amlodipine 5 mg PO DAILY 05/13/20 [History Confirmed 05/13/20] apixaban [Eliquis] 5 mg PO BID 05/13/20 [History Confirmed 05/13/20] carvedilol 25 mg PO BID 05/13/20 [History Confirmed 05/13/20] chlorthalidone 25 mg PO DAILY 05/13/20 [History Confirmed 05/13/20] cholecalciferol (vitamin D3) 50 mcg PO DAILY 05/13/20 [History Confirmed 05/13/20] fluticasone propionate 2 spray INTRANASAL DAILY PRN 05/13/20 [History Confirmed 05/13/20] ketorolac 1 drp RIGHTEYE TID 05/13/20 [History Confirmed 05/13/20] latanoprost 1 drp OPHTHALMIC (EYE) HS 05/13/20 [History Confirmed 05/13/20] levothyroxine 125 mcg PO DAILY 05/13/20 [History Confirmed 05/13/20] lovastatin 20 mg PO DAILY 05/13/20 [History Confirmed 05/13/20] metformin 1,000 mg PO BID 05/13/20 [History Confirmed 05/13/20] ofloxacin 1 drp RIGHTEYE TID 05/13/20 [History Confirmed 05/13/20] olmesartan 20 mg PO BID 05/13/20 [History Confirmed 05/13/20] prednisolone acetate 1 drp RIGHTEYE TID 05/13/20 [History Confirmed 05/13/20] turmeric 400 mg PO DAILY 05/13/20 [History Confirmed 05/13/20] vit C-vit [id number] [PreserVisio
[2020-05-16 23:33] LABS: Osmolality, Urine 353 mOsm/kg (50-1200)
== END 2020-05-15 15:55 | disposition short-term general hospital (02) | DRG 872 ==
LOC: ANHED 18:44 → ANHIMU 22:20
PROVIDERS: Family Medicine; Internal Medicine Cardiovascular Disease; Nurse Practitioner; Admitting Provider Family Medicine; Emergency Provider General Practice; PCP Internal Medicine; Visit Provider Family Medicine
DX: A41.51 Sepsis due to Escherichia coli [E. coli] (principal); N39.0 Urinary tract infection, site not specified; I47.1 Supraventricular tachycardia; E87.1 Hypo-osmolality and hyponatremia; I50.32 Chronic diastolic (congestive) heart failure; N17.9 Acute kidney failure, unspecified; Z68.41 Body mass index [BMI] 40.0-44.9, adult; I11.0 Hypertensive heart disease with heart failure; E86.0 Dehydration; Z96.653 Presence of artificial knee joint, bilateral; G47.33 Obstructive sleep apnea (adult) (pediatric); E03.9 Hypothyroidism, unspecified; E11.9 Type 2 diabetes mellitus without complications; I48.0 Paroxysmal atrial fibrillation; H40.9 Unspecified glaucoma; E66.9 Obesity, unspecified; Z87.891 Personal history of nicotine dependence; Z98.41 Cataract extraction status, right eye; Z98.42 Cataract extraction status, left eye; Z95.0 Presence of cardiac pacemaker; Z85.028 Personal history of other malignant neoplasm of stomach; Z79.01 Long term (current) use of anticoagulants
CPT/HCPCS: 36415; 51701; 71045; 80048; 80053; 81001; 83036; 83605; 83735; 83935; 84300; 84443; 84484; 85025; 85027; 85610; 85730; 86140; 87040; 87077; 87086; 87088; 87186; 93005; 96365; 96375; 99285; A9270; J0282; J0696; J1815; J3475; J7030

== ENCOUNTER 2023-07-29 09:31 | Emergency (ER) | payer MEDICARE, SELFPAY ==
--- NOTE | 2023-07-29 09:39 | ED.URI ---
HPI - URI/Sore Throat General Chief Complaint: Upper Respiratory Infection Stated Complaint: bodyaches,cold,stuffy nose Time Seen by Provider: 07/29/23 09:39 Source: patient Mode of arrival: ambulatory Limitations: no limitations History of Present Illness HPI Narrative: Faye is an 83-year-old female patient presenting to the clinic today with complaints of body aches, cough, and nasal congestion x3 days. She reports over the past 2 days her nose has been running a lot. Feels cold but denies any known fever. Denies any shortness of breath or chest pain. Related Data Home Medications Medication Instructions Recorded Confirmed apixaban 5 mg tablet (Eliquis) 5 mg PO BID 05/13/20 07/29/23 carvedilol 25 mg tablet 25 mg PO BID 05/13/20 07/29/23 chlorthalidone 25 mg tablet 25 mg PO DAILY 05/13/20 07/29/23 cholecalciferol (vitamin D3) 50 50 mcg PO DAILY 05/13/20 07/29/23 mcg (2,000 unit) capsule fluticasone propionate 50 2 spray intranasal DAILY PRN Sinus 05/13/20 07/29/23 mcg/actuation nasal Symptoms spray,suspension ketorolac 0.5 % eye drops 1 drp RIGHT EYE TID 05/13/20 07/29/23 latanoprost 0.005 % eye drops 1 drp ophthalmic (eye) HS 05/13/20 07/29/23 levothyroxine 125 mcg tablet 125 mcg PO DAILY 05/13/20 07/29/23 lovastatin 20 mg tablet 20 mg PO DAILY 05/13/20 07/29/23 olmesartan 20 mg tablet 20 mg PO BID 05/13/20 07/29/23 turmeric 400 mg capsule 400 mg PO DAILY 05/13/20 07/29/23 vit C 226 mg-vit E 90 mg-copper 1 cap PO DAILY 05/13/20 07/29/23 0.8 mg-zinc oxide-lutein 5 mg capsule (PreserVision Lutein) amiodarone 200 mg tablet 200 mg DIRECTED 07/29/23 07/29/23 losartan 25 mg tablet mg 07/29/23 torsemide 20 mg tablet 20 mg DIRECTED 07/29/23 07/29/23 Allergies Allergy/AdvReac Type Severity Reaction Status Date / Time exenatide Allergy Intermediate KNEE Verified 05/13/20 21:30 SWELLING enalaprilat Allergy Mild UNSURE Verified 05/13/20 21:30 lisinopril Allergy Mild UNSURE Verified 05/13/20 21:30 streptomycin Allergy Mild ITCHING, Verified 05/13/20 21:30 NUMBNESS IN ARM hydrocodone AdvReac Intermediate NAUSEA Verified 05/13/20 21:30 MEPIVACAINE HCL Allergy Severe RESP Uncoded 05/13/20 21:30 DISTRESS Review of Systems Review of Systems: Pertinent positives per HPI. Patient denies any fever, chills, rash, headache, visual changes, dizziness, sore throat, shortness of breath, chest pain, palpitations, nausea, vomiting, diarrhea, constipation, abdominal pain, or any urinary issues. [facility] Past Medical History Medical History Cataract CHF (congestive heart failure), NYHA class I Diastolic dysfunction and 1 DM2 (diabetes mellitus, type 2) Frequent UTI Glaucoma Hypothyroidism Obstructive sleep apnea Pacemaker Port-A-Cath in place Sick sinus syndrome Stomach cancer Treated with radiation and chemotherapy Surgical History Surgical History Cataract extraction status History of bilateral knee replacement History of carpal tunnel release Right hand Family History Family History Father Cerebrovascular accident Mother Cancer Grandparent Carcinoma of colon Social History Social History Social History: 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 She quit smoking 17 or 18 years ago. For a brief period time maybe 8 years. No alcohol or illicit drugs. Her daughter Teri is a durable power estate attorney for healthcare. She desires to be a full code. She denies any alcohol or illicit drugs. Smoking packs per day: 2.5 Smoking cigarettes per day: 50.0 Years smoked: 8 Smoking pack-years: 20.00 Smoking status: Former smoker Tobacco type: cigarettes Alcohol intake: never Substance use: never Substance use type: does not use Gen
[2023-07-29 09:46] VITALS: BP 137/72; PULSE 76; RESP 20; TEMP 37.6; O2SAT 96
== END 2023-07-29 10:19 | disposition home or self-care (01) ==
PROVIDERS: Emergency Provider Nurse Practitioner Family; PCP Internal Medicine
DX: J10.1 Influenza due to other identified influenza virus with other respiratory manifestations (principal); Z20.822 Contact with and (suspected) exposure to COVID-19; I50.9 Heart failure, unspecified; E11.9 Type 2 diabetes mellitus without complications; H40.9 Unspecified glaucoma; E03.9 Hypothyroidism, unspecified; Z95.0 Presence of cardiac pacemaker; Z85.028 Personal history of other malignant neoplasm of stomach; Z96.653 Presence of artificial knee joint, bilateral; Z87.891 Personal history of nicotine dependence; Z79.01 Long term (current) use of anticoagulants
CPT/HCPCS: 87426; 87804; 99213; G0463